=== PATIENT | female | born 1970 | race Two or more races ===

== ENCOUNTER 2023-09-10 09:40 | Emergency (ER) | payer MEDICAID ==
[~2023-09-10] VITALS: Ht 152.4 cm; Wt 76.9 kg
[2023-09-10 10:10] VITALS: BP 130/89; PULSE 116; RESP 18; TEMP 97.6; O2SAT 95
[2023-09-10] MEDS ORDERED: ONDANSETRON HCL 4 MG/2 ML VIAL IV ONE (10:45)
[2023-09-10] MEDS ORDERED: SODIUM CHLORIDE 0.9% 1,000 ML IV ONE (10:45)
[2023-09-10] MEDS ORDERED: diphenhdrAMINE HCL 50 MG/1 ML VL IV ONE (10:45)
[2023-09-10 11:32] LABS: Alanine Aminotransferase 39 U/L (7-40); Albumin 4.5 g/dL (3.2-4.8); Alkaline Phosphatase 262 U/L (46-116); Anion Gap 13 (5-15); Aspartate Aminotransferase 32 U/L (13-40); BUN/Creatinine Ratio 33.8 (10.0-20.0); Bilirubin, Total 1.2 mg/dL (0.2-1.0); Blood Urea Nitrogen 23 mg/dL (9-23); Calcium 10.2 mg/dL (8.7-10.4); Carbon Dioxide 20 mmol/L (20-30); Chloride 107 mmol/L (98-107); Glucose 109 mg/dL (74-106); Sodium 140 mmol/L (136-145); Total Protein 8.5 g/dL (5.7-8.2)
[2023-09-10 12:11] LABS: Basophils # (auto) 0.1 10 ^3/uL (0-0.2); Eosinophils # (auto) 0 10 ^3/uL (0-0.8); Hemoglobin 17.5 g/dL (12.2-16.2); Mean Corpuscular Hgb Conc. 33.3 g/dL (32.0-36.0); White Blood Cell 12.4 10^3/uL (4.4-10.8)
[2023-09-10 12:13] LABS: Basophils % (auto) 0.4 % (0.0-2.0); Eosinophils % (auto) 0.2 % (0.0-7.0); Hematocrit 52.6 % (36.0-46.0); Lymphocytes # (auto) 3.6 10 ^3/uL (0.4-5.4); Lymphocytes % (auto) 29.2 % (10.0-50.0); Mean Corpuscular Hemoglobin 26.6 pg (28.0-32.0); Mean Corpuscular Volume 80.1 fL (80.0-100.0); Monocytes # (auto) 0.8 10 ^3/uL (0-1.3); Monocytes % (auto) 6.2 % (0.0-12.0); Neutrophils # (auto) 7.9 10 ^3/uL (1.6-8.6); Nucleated Red Blood Cells % 0.3 %; Red Blood Cells 6.56 10^6/uL (4.0-5.20); Red Cell Distribution Width 14.8 % (11.8-14.3)
[2023-09-10 12:38] LABS: Urine Bacteria NONE SEEN /hpf (None Seen); Urine Blood Negative /uL (Negative); Urine Clarity HAZY (Clear); Urine Color Yellow (Yellow); Urine Mucus MODERATE (None Seen); Urine Protein, UAD 2+ (Negative); Urine Specific Gravity 1.035 (1.001-1.035); Urine WBC 5 /hpf (0 - 5)
[2023-09-10 12:46] LABS: Amphetamine Screen, Urine Neg (NEGATIVE); Barbiturate Scree,Urine Neg (NEGATIVE); Benzodiazephine Screen, Urine Neg (NEGATIVE); Cannabinoid Screen, Urine Pos (NEGATIVE); Cocaine Screen, Urine Neg (NEGATIVE); Opiate Scree,Urine Neg (NEGATIVE); Phencyclidine Screen, Urine Neg (NEGATIVE)
[2023-09-10] MEDS ORDERED: ZOFR4T PO (12:49)
== END 2023-09-10 13:06 | disposition home or self-care (01) ==
LOC: ER 09:40
DX: R11.2 Nausea with vomiting, unspecified (principal); K21.9 Gastro-esophageal reflux disease without esophagitis; T50.905A Adverse effect of unspecified drugs, medicaments and biological substances, initial encounter; Z79.899 Other long term (current) drug therapy; Y92.9 Unspecified place or not applicable
CPT/HCPCS: 36415; 80053; 80307; 81001; 85025; 96361; 96374; 96375; 99284; J1200; J2405; J7030

== ENCOUNTER 2024-06-29 11:30 | Emergency (ER) | payer MEDICAID ==
[~2024-06-29] VITALS: Ht 152.4 cm; Wt 84.0 kg
[~2024-06-29 11:30] MED LIST: ZOFR4T PO
--- NOTE | 2024-06-29 11:50 | ED.PDOC ---
History of Present Illness HPI Comments 53 year old female presents to the ED with chief complaint of chest pain and SOB. Patient reports that she has been experiencing mid sternal chest pain with radiation to the right shoulder along with associated SOB since 1030 last night. Patient relays that she started to experience her SOB after breathing in cold air last night. Patient denies any cough, fever, chills, dizziness, N/V/D, or abdominal pain. Chief Complaint: Shortness of Breath Time Seen by MD: 11:49 Primary Care Provider: JANETH Reviewed Notes: Nurses Notes, Medications, Allergies Allergies: Coded Allergies: NO KNOWN ALLERGIES (Unverified , 09/10/23) Home Meds Active Scripts Pantoprazole Sodium Sesquihydr (Protonix) 40 Mg Tab, 40 MG PO DAILY for 5 Days, #5 TAB Prov:EV HOPKINS MD 06/29/24 Ondansetron Odt 4MG Tab (ZOFRAN PO) 4 Mg Tb, 4 MG PO BID, #20 TAB ODT TAB-DISSOLVE IN MOUTH, THEN SWALLOW Prov:ANDREE MEDINA 09/10/23 Information Source: Patient Mode of Arrival: Ambulatory Severity: Moderate Timing: Hours Duration: Since onset Prehospital treatment: None Past Medical History PAST MEDICAL HISTORY: Asthma, GERD Past Medical History (Other): Crohn's, Gastric ulcers Surgical History: Denies all surgeries 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 Hx Family History Family History: Reviewed,noncontributory to illness Social History Smoker: Non-Smoker Alcohol: Rarely Drugs: Marijuana Lives In: Home Constitutional: denies: chills, diaphoresis, fatigue, fever, malaise, sweats, weakness, others EENTM: denies: blurred vision, double vision, ear bleeding, ear discharge, ear drainage, ear pain, ear ringing, eye pain, eye redness, hearing loss, mouth pain, mouth swelling, nasal discharge, nose bleeding, nose congestion, nose pain, photophobia, tearing, throat pain, throat swelling, voice changes, others Respiratory: denies: cough, hemoptysis, orthopnea, SOB at rest, shortness of breath, SOB with excertion, stridor, wheezing, others Cardiovascular: denies: chest pain, dizzy spells, diaphoresis, Dyspnea on exertion, edema, irregular heart beat, left arm pain, lightheadedness, palpitations, PND, syncope, others Physical Exam General Appearance: Moderate Distress, Normal HEENT: Normal ENT Inspection, PERRL/EOMI Neck: Full Range of Motion, Non-Tender, Normal, Normal Inspection Respiratory: Chest Non-Tender, Lungs Clear, No Accessory Muscle Use, No Respiratory Distress, Normal Breath Sounds Cardiovascular: No Edema, No JVD, No Murmur, No Gallop, Normal Peripheral Pulses, Regular Rate/Rhythm Breast Exam: Deferred Gastrointestinal: No Organomegaly, Non Tender, No Pulsatile Mass, Normal Bowel Sounds, Soft Genitalia: Deferred Pelvic: Deferred Rectal: Deferred Extremities: No calf tenderness, Normal capillary refill, Normal inspection, Normal range of motion, Non-tender, No pedal edema Musculoskeletal : Apperance: Normal Neurologic: Alert, special needs nanny II-XII nml as Tested, No Motor Deficits, Normal Affect, Normal Mood, No Sensory Deficits Cerebellar Function: Normal Reflexes: Normal Skin: Dry, Normal Color, Warm Peripheral Pulses: 3+ Radial (R), 3+ Radial (L) Lymphatic: No Adenopathy Was a procedure done? Was a procedure done?: No Differential Dx Considerations may include: Anemia Electrolyte imbalance X-Ray, Labs, Meds, VS Vital Signs Date Time Temp Pulse Resp B/P (MAP) Pulse Ox O2 Delivery O2 Flow Rate FiO2 06/29/24 12:49 111 20 98 Room Air 06/29/24 12:49 111 20 139/86 (103) 98 06/29/24 11:43 18 95 Room Air* 0 21 06/29/24 11:37 98.3 122 18 156/90 (112) 95 Lab Test 06/29/24 12:47 06/29/24 12:44 Range/Units Urine Color Yellow Yellow Urine Clarity Clear Clear Urine pH 5.0 5.0-9.0 Urine Specific [place] 1.016 1.001-1.035 Urine Protein Negative Negative Urine Ketones Negative Negative Urine Blood Negative Negative /uL Urine Nitrite Negative Negative Urine Bilirubin Negative Negative Urine Urobilinogen Normal Negative mg/dL Urine Leukocyte Esterase Negative Negative /uL Urine RBC None seen 0 - 4 /hpf Urine WBC None seen 0 - 5 /hpf Urine Squamous Epithelial Cells None seen <5 /hpf Urine Bacteria None seen None Seen /hpf Urine Mucus Few None Seen Urine Glucose Normal Normal mg/dL White Blood Count 9.9 4.4-10.8 10^3/uL Red Blood Count 5.62 H 4.0-5.20 10^6/uL Hemoglobin 14.8 12.2-16.2 g/dL Hematocrit 43.8 36.0-46.0 % Mean Corpuscular Volume 78.1 L 80.0-100.0 fL Mean Corpuscular Hemoglobin 26.3 L 28.0-32.0 pg Mean Corpuscular Hemoglobin Concent 33.7 32.0-36.0 g/dL Red Cell Distribution Width 15.4 H 11.8-14.3 % Platelet Count 334 140-450 10^3/uL Mean Platelet Volume 7.9 6.9-10.8 fL Neutrophils (%) (Auto) 63.2 37.0-80.0 % Lymphocytes (%) (Auto) 27.1 10.0-50.0 % Monocytes (%) (Auto) 7.9 0.0-12.0 % Eosinophils (%) (Auto) 0.9 0.0-7.0 % Basophils (%) (Auto) 0.9 0.0-2.0 % Neutrophils # (Auto) 6.2 1.6-8.6 10 ^3/uL Lymphocytes # (Auto) 2.7 0.4-5.4 10 ^3/uL Monocytes # (Auto) 0.8 0-1.3 10 ^3/uL Eosinophils # (Auto) 0.1 0-0.8 10 ^3/uL Basophils # (Auto) 0.1 0-0.2 10 ^3/uL Nucleated Red Blood Cells 0.1 % Sodium Level 142 136-145 mmol/L Potassium Level 4.5 3.5-5.1 mmol/L Chloride Level 109 H 98-107 mmol/L Carbon Dioxide Level 25 20-31 mmol/L Anion Gap 8 5-15 Blood Urea Nitrogen 17 9-23 mg/dL Creatinine 0.53 L 0.550-1.02 mg/dL Glomerular Filtration Rate Calc 110 >90 mL/min BUN/Creatinine Ratio 32.1 H 10.0-20.0 Serum Glucose 93 74-106 mg/dL Calcium Level 10.4 8.7-10.4 mg/dL Troponin I High Sensitivity 3 L </=34 ng/L Current Medications Medications (Trade) Dose Ordered Sig/Flynn Route Start Time Stop Time Status Last Admin Belladonna Alkaloids/ Phenobarbital ( Elixir) 10 ml ONCE ONCE PO 06/29/24 12:15 06/29/24 12:16 DC 06/29/24 12:41 Al Hydrox/Mg Hydrox/Simethicone (Maalox Plus) 30 ml ONCE ONCE PO 06/29/24 12:15 06/29/24 12:16 DC 06/29/24 12:41 Lidocaine HCl (Xylocaine 2% Viscous) 15 ml ONCE ONCE PO 06/29/24 12:15 06/29/24 12:16 DC 06/29/24 12:42 Patient alert. Slightly elevation blood pressure. Denies hypertension Saturation pristine room air. Respiratory rate within normal limits. No leg swelling. Denies shortness a breath. Able to take deep breaths. Possible gastritis. Was given GI cocktail. Explained to the patient. Was told to follow up her primary care physician. Was told to come back if there is any problem. Chest XR: FINDINGS: Lines and Tubes: None Lungs: No focal consolidation. Pleura: No effusion. No pneumothorax. Cardiomediastinal contours: Unremarkable Bones: No acute osseous abnormality. IMPRESSION: No acute cardiopulmonary disease. Images Reviewed?: Images reviewed and evaluated by me Time of 1ST Reevaluation: 12:49 Reevaluation 1ST: Improved Time of 2ND Reevaluation: 14:31 Reevaluation 2ND: Improved Patient Education/Counseling: Diagnosis, Treatment Family Education/Counseling: No Family Present Departure 1 Departure Time of Disposition: 12:00 Impression: Primary Impression: Gastritis Qualified Codes: K29.00 - Acute gastritis without bleeding Disposition: 01 HOME / SELF CARE / HOMELESS Condition: Good e-Prescriptions Pantoprazole Sodium Sesquihydr (Protonix) 40 Mg Tab 40 MG PO DAILY for 5 Days, #5 TAB Prov: EV HOPKINS MD 06/29/24 Discharged With: Self Critical Care Note Critical Care Time?: No Stability Stability form required: No Heart Score Heart Score: Heart Score Response (Comments) Value History N/A 0 EKG N/A 0 Age N/A 0 Risk Factors N/A 0 Troponin N/A 0 Total 0 I personally scribed for EV HOPKINS MD ([email or web address]) on 06/29/24 at 11:50. Electronically submitted by Adonay Tirado ([email or web address]). I personally scribed for EV HOPKINS MD ([email or web address]) on 06/29/24 at 11:56. Electronically submitted by Adonay Tirado ([email or web address]). I personally scribed for EV HOPKINS MD ([email or web address]) on 06/29/24 at 12:57. Electronically submitted by Adonay Tirado ([email or web address]). EV HOPKINS MD Jun 29, 2024 11:50
[2024-06-29] MEDS: MAALOX PLUS or MAALOX 30 ML PO ONE (12:41)
[2024-06-29] MEDS: DONNATAL 5ml ORAL Elix (BELLADONNA ALK-PHENOBARB) PO ONE (12:41)
[2024-06-29] MEDS: LIDOCAINE VISCOUS 2% 15ML UD PO ONE (12:42)
--- NOTE | 2024-06-29 12:52 | DVH ---
EXAM: XY CHEST PORTABLE Indication:sob Technique: Single frontal view of the chest was obtained Comparison: None FINDINGS: Lines and Tubes: None Lungs: No focal consolidation. Pleura: No effusion. No pneumothorax. Cardiomediastinal contours: Unremarkable Bones: No acute osseous abnormality. IMPRESSION: No acute cardiopulmonary disease.
[2024-06-29 13:03] LABS: Basophils # (auto) 0.1 10 ^3/uL (0-0.2); Eosinophils # (auto) 0.1 10 ^3/uL (0-0.8); Monocytes # (auto) 0.8 10 ^3/uL (0-1.3); Neutrophils # (auto) 6.2 10 ^3/uL (1.6-8.6); Nucleated Red Blood Cells % 0.1 %; Red Blood Cells 5.62 10^6/uL (4.0-5.20); White Blood Cell 9.9 10^3/uL (4.4-10.8)
[2024-06-29 13:05] LABS: Basophils % (auto) 0.9 % (0.0-2.0); Eosinophils % (auto) 0.9 % (0.0-7.0); Hematocrit 43.8 % (36.0-46.0); Hemoglobin 14.8 g/dL (12.2-16.2); Lymphocytes # (auto) 2.7 10 ^3/uL (0.4-5.4); Lymphocytes % (auto) 27.1 % (10.0-50.0); Mean Corpuscular Hemoglobin 26.3 pg (28.0-32.0); Mean Corpuscular Hgb Conc. 33.7 g/dL (32.0-36.0); Mean Corpuscular Volume 78.1 fL (80.0-100.0); Monocytes % (auto) 7.9 % (0.0-12.0); Neutrophils % (auto) 63.2 % (37.0-80.0); Platelet Count (auto) 334 10^3/uL (140-450); Red Cell Distribution Width 15.4 % (11.8-14.3)
[2024-06-29 13:09] LABS: Urine Bacteria None Seen /hpf (None Seen); Urine WBC None Seen /hpf (0 - 5)
[2024-06-29 13:13] LABS: Chloride 109 mmol/L (98-107); Potassium 4.5 mmol/L (3.5-5.1); Sodium 142 mmol/L (136-145)
[2024-06-29 13:14] LABS: Calcium 10.4 mg/dL (8.7-10.4)
[2024-06-29 13:19] LABS: BUN/Creatinine Ratio 32.1 (10.0-20.0); Blood Urea Nitrogen 17 mg/dL (9-23); Glucose 93 mg/dL (74-106)
[2024-06-29 13:35] LABS: Urine Blood Negative /uL (Negative); Urine Clarity Clear (Clear); Urine Color Yellow (Yellow); Urine Mucus FEW (None Seen); Urine Protein, UAD Negative (Negative); Urine Specific Gravity 1.016 (1.001-1.035); Urine Urobilinogen Normal (Negative)
[2024-06-29 14:04] LABS: Anion Gap 8 (5-15); Carbon Dioxide 25 mmol/L (20-31)
[2024-06-29] MEDS ORDERED: PANT40TA2 PO (14:30)
[2024-06-29 14:43] VITALS: BP 136/79; RESP 17; TEMP 97.4; O2SAT 95
[2024-06-29] MEDS ORDERED: FAMO20TA10 PO (17:37)
[2024-06-29 18:13] VITALS: PULSE 116
--- NOTE | 2024-07-02 14:15 | ECG ---
[facility] Test Date: 2024-06-29 Test Time: 11:42:25 Pat Name: JENN ALVARADO Department: Room: Gender: F Manager Green: ER : 1970 Requested By: EV HOPKINS Order Number: [id number] Reading MD: Mesfin Rosales Measurements Intervals [place] Rate: 116 P: 68 NE: 190 QRS: 71 QRSD: 73 T: 58 QT: 299 QTc: 416 Interpretive Statements Sinus tachycardia Minimal ST elevation, inferior leads Baseline wander in lead(s) II,III,aVF,V5 Electronically Signed On 07-05-2024 13:23:20 PST by Mesfin Rosales Please click the below link to view image of tracing.
== END 2024-06-29 14:44 | disposition home or self-care (01) ==
LOC: ER 11:30
DX: K29.70 Gastritis, unspecified, without bleeding (principal); J45.909 Unspecified asthma, uncomplicated; F12.90 Cannabis use, unspecified, uncomplicated
CPT/HCPCS: 36415; 71045; 80048; 81001; 84484; 85025; 93005

== ENCOUNTER 2025-04-16 13:23 | Emergency (ER) | payer MEDICAID ==
[~2025-04-16] VITALS: Ht 165.1 cm; Wt 89.0 kg
[~2025-04-16 13:23] MED LIST changes: +FAMO20TA10 PO; +PANT40TA2 PO
[2025-04-16 13:27] VITALS: TEMP 98.4
--- NOTE | 2025-04-16 15:52 | DVH ---
CHEST RADIOGRAPH Indication: R/o pna Technique: XY CHEST TWO VIEWS ROUTINE COMPARISON: None FINDINGS: The cardiac silhouette is unremarkable. The lungs demonstrate bilateral patchy airspace opacities. Th e pulmonary vasculature is prominent. There is no pleural effusion. There is no pneumothorax. Moderat e thoracic degenerative disc disease. IMPRESSION: Pulmonary vascular congestion and bilateral patchy airspace opacities.
[2025-04-16 16:03] VITALS: BP 136/73; PULSE 91; RESP 18; O2SAT 96
[2025-04-16] MEDS ORDERED: BENZ100C97 PO (16:32)
[2025-04-16] MEDS ORDERED: AUG875T PO (16:32)
[2025-04-16] MEDS ORDERED: GUAI600T78 PO (16:32)
[2025-04-16] MEDS ORDERED: PROM1SOL4 PO (16:32)
--- NOTE | 2025-04-16 16:32 | ED.PDOC ---
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 OFFICER Hx Family History Family History: Reviewed,noncontributory to illness Social History Smoker: Non-Smoker Alcohol: Rarely Drugs: Marijuana Lives In: Home All Other Systems: Reviewed and Negative (Per HPI) Physical Exam General Appearance: No Apparent Distress, Normal HEENT: Normal ENT Inspection, Pharynx Normal, TMs Normal Neck: Full Range of Motion, Non-Tender, Normal, Normal Inspection Respiratory: Chest Non-Tender, Lungs Clear, No Accessory Muscle Use, No Respiratory Distress, Normal Breath Sounds Cardiovascular: No Edema, No JVD, No Murmur, No Gallop, Normal Peripheral Pulses, Regular Rate/Rhythm Breast Exam: Deferred Gastrointestinal: No Organomegaly, Non Tender, No Pulsatile Mass, Normal Bowel Sounds, Soft Genitalia: Deferred Pelvic: Deferred Rectal: Deferred Extremities: No calf tenderness, Normal capillary refill, Normal inspection, Normal range of motion, Non-tender, No pedal edema Musculoskeletal : Apperance: Normal Neurologic: Alert, needle loom operator II-XII nml as Tested, No Motor Deficits, Normal Affect, Normal Mood, No Sensory Deficits Cerebellar Function: Normal Reflexes: Normal Skin: Dry, Normal Color, Warm Lymphatic: No Adenopathy Was a procedure done? Was a procedure done?: No Differential Dx Differential Diagnosis: Pneumonia, URI X-Ray, Labs, Meds, VS Vital Signs Date Time Temp Pulse Resp B/P (MAP) Pulse Ox O2 Delivery O2 Flow Rate FiO2 04/16/25 16:03 91 18 96 Room Air 04/16/25 16:03 91 18 136/73 (94) 95 04/16/25 13:27 98.4 94 18 147/97 95 98.4 X-Ray, Labs, Meds, VS Comment The patient's presentation and chest x-ray findings are consistent with pneumonia. The patient is overall well-appearing and does not appear to be clinically toxic. Therefore, the patient is a good candidate for outpatient treatment. The patient was given Antibiotics to treat for pneumonia. The patient was reassessed throughout the ED visit and remained stable. The patient did not require any supplemental oxygen while in the ED. The patient was able to ambulate as well as tolerate p.o. intake in the ED. discussed the management plan with the patient who was in agreement, strict return precautions to the ED were given Time of 1ST Reevaluation: 16:30 Reevaluation 1ST: Improved Patient Education/Counseling: Diagnosis, Treatment Family Education/Counseling: Diagnosis, Treatment SEPSIS Sepsis Screen Date sepsis recognized/suspect: Apr 16, 2025 Time Sepsis recognized/suspect: 132 Recent Procedure: No On Antibiotic Therapy: No Respiratory Rate >20: No Heart Rate >90: Yes Temp<36 C (96.8 F) or >38.3 C: No SBP <90 or MAP <65 mmHG: No New Acute Mental Status Change: No Is the patient on CPAP, BIPAP,: No Physician Orders Chest Two Views Routine (04/16/25 15:11) Vital Signs Date Time Temp Pulse Resp B/P (MAP) Pulse Ox O2 Delivery O2 Flow Rate FiO2 04/16/25 16:03 91 18 96 Room Air 04/16/25 16:03 91 18 136/73 (94) 95 04/16/25 13:27 98.4 94 18 147/97 95 98.4 Departure 1 Departure Time of Disposition: 16:30 Impression: Primary Impression: PNA (pneumonia) Qualified Codes: J18.9 - Pneumonia, unspecified organism Disposition: 01 HOME / SELF CARE / HOMELESS Condition: Stable e-Prescriptions Promethazine-Dm (Promethazine Dm 6.25-15 mg/5Ml) 1 Raina Raina 5 ML PO TIDPRN PRN for 10 Days, #150 ML 0 Refills Prov: ANDREE MEDINA 04/17/25 Guaifenesin (Mucinex) 600 Mg Tab 1 TAB PO BID for 7 Days, #14 TAB 0 Refills Prov: BEE SCHWARTZ NP 04/16/25 Benzonatate (Benzonatate) 100 Mg Cap 1 CAP PO TID for 10 Days, #30 CAP 0 Refills Prov: BEE SCHWARTZ NP 04/16/25 Amoxicillin & Pot Clavulanate (AUGMENTIN TABLET) 875 Mg Tb 875 MG PO BID for 7 Days, #14 TAB 0 Refills Prov: BEE SCHWARTZ NP 04/16/25 Discharged With: Spouse Critical Care Note Critical Care Time?: No Stability Stability form required: No Heart Score Heart Score: Heart Score Response (Comments) Value History N/A 0 EKG N/A 0 Age N/A 0 Risk Factors N/A 0 Troponin N/A 0 Total 0 BEE SCHWARTZ NP Apr 16, 2025 16:32
[2025-04-17] MEDS ORDERED: PROM1SOL4 PO (10:09)
== END 2025-04-16 16:37 | disposition home or self-care (01) ==
LOC: ER 13:23
DX: J18.9 Pneumonia, unspecified organism (principal); F12.90 Cannabis use, unspecified, uncomplicated; J45.909 Unspecified asthma, uncomplicated; Z79.899 Other long term (current) drug therapy
CPT/HCPCS: 71046; 96372; 99283; J1100